=== PATIENT | female | born 1940 | race Caucasian/White ===

== ENCOUNTER 2021-09-05 13:06 | Outpatient (CLI) | payer MEDICARE, MEDICAID | END 2021-09-05 13:07 | disposition home or self-care (01) | LOC: CT 13:06 | PROVIDERS: ATTEND Nurse Practitioner Acute Care | DX: R41.89 Other symptoms and signs involving cognitive functions and awareness (principal); G31.89 Other specified degenerative diseases of nervous system | CPT/HCPCS: 70450 ==